=== PATIENT | female | born 1945 | race Two or more races ===

== ENCOUNTER 2021-06-15 05:44 | Day surgery (SDC) | payer OTHER ==
[~2021-06-15 05:44] MED LIST: EVISTA60 MG; NEURONTIN PO; PROTONIX40 M1
[2021-06-15] MEDS ORDERED: POLY119PG PO (09:24)
[2021-06-15] MEDS ORDERED: PERCOCET 5-3251 EACH PO (09:24)
[2021-06-15] MEDS ORDERED: NEURONTIN600 M1 PO (09:24)
== END 2021-06-15 12:50 | disposition home or self-care (01) ==
LOC: CIR.AMB 05:44
PROVIDERS: ATTEND Surgery
DX: K43.0 Incisional hernia with obstruction, without gangrene (principal); Z20.822 Contact with and (suspected) exposure to COVID-19